=== PATIENT | female | born 1965 | race American Indian/Alaskan Native ===

== ENCOUNTER 2016-08-26 08:49 | Emergency (ER) | payer BC ==
[2016-08-26 10:07] LABS: Basophils % (Auto) 0.5 % (0.0-1.8); Eosinophils % (Auto) 1.8 % (0.0-4.3); Hematocrit 34.8 % (30.3-42.9); Hemoglobin 10.8 gm/dl (10.1-14.3); Mean Corpuscular HGB Conc 31 % (30-34); Platelet Count 236 K/mm3 (140-440); Red Blood Count 5.14 M/mm3 (3.65-5.03); Red Cell Distribution Width 15.9 % (13.2-15.2); White Blood Count 5.5 K/mm3 (4.5-11.0)
[2016-08-26 10:09] LABS: Mean Corpuscular Hemoglobin 21 pg (28-32); Mean Corpuscular Volume 68 fl (79-97)
[2016-08-26 10:12] LABS: Anion Gap 20 mmol/L; BUN/Creatinine Ratio 16.66; Blood Urea Nitrogen 15 mg/dL (7-17); Calcium 10.4 mg/dL (8.4-10.2); Carbon Dioxide 26 mmol/L (22-30); Chloride 101.9 mmol/L (98-107); Glucose 101 mg/dL (65-100); Sodium 144 mmol/L (137-145)
[2016-08-26] MEDS ORDERED: CATAPRES PO ONE (10:50)
--- NOTE | 2016-08-26 10:55 | Emergency Department Report ---
ED Syncope HPI - General Chief Complaint: Syncope Stated Complaint: SYNCOPE Time Seen by Provider: 08/26/16 10:30 Source: patient Exam Limitations: no limitations - History of Present Illness Initial Comments: 51-year-old female presents to the emergency department via EMS for evaluation of syncope. She states that she resigned from her job yesterday. As part of this resignation, she states she was going to work through the end of the week. However after arriving at work today, she states her loss prevention supervisor pulled her into the office and told her that they were releasing her at that time. An argument ensued. Patient states that she left the office and while talking to another coworker began feeling lightheaded. Patient states that she then woke up on the floor. Patient states a similar episode happened one other time after an argument with the loss prevention supervisor. At this time, the patient states that she feels perfectly fine. Patient states that she did take her blood pressure medication this morning. There are no other complaints. Timing/Prior Episodes: single episode today Precipitating Factors: Positive: lightheadedness Context: emotional stress Loss of Consciousness: brief (seconds) Current Symptoms: back to normal - Related Data Allergies/Adverse Reactions: Allergies shrimp Allergy (Verified 05/09/16 10:45) Shortness of Breath Home Medications: Ambulatory Orders Amlodipine Besylate [Norvasc] 2.5 mg PO DAILY #30 tab 05/12/16 Aspirin [Aspirin BABY CHEW TAB] 81 mg PO QDAY #30 tab.chew 05/12/16 Lisinopril [Zestril TAB] 40 mg PO QDAY #30 tablet 05/12/16 Simvastatin [Zocor TAB] 20 mg PO QHS #30 tablet 05/12/16 ED Review of Systems ROS: Stated complaint: SYNCOPE Other details as noted in HPI Comment: All other systems reviewed and negative Cardiovascular: syncope ED Past Medical Hx - Past Medical History Previous Medical History?: Yes Hx Hypertension: Yes Hx Congestive Heart Failure: No Hx Diabetes: No Hx Asthma: No Hx COPD: No - Surgical History Past Surgical History?: Yes Additional Surgical History: x 2 - Family History Family history: no significant - Social History Smoking Status: Never Smoker Substance Use Type: None - Medications Home Medications: Home Medications Medication Instructions Recorded Confirmed Last Taken Type Amlodipine Besylate [Norvasc] 2.5 mg PO DAILY #30 tab 05/12/16 08/26/16 Unknown Rx Aspirin [Aspirin BABY CHEW TAB] 81 mg PO QDAY #30 tab.chew 05/12/16 08/26/16 Unknown Rx Lisinopril [Zestril TAB] 40 mg PO QDAY #30 tablet 05/12/16 08/26/16 Unknown Rx Simvastatin [Zocor TAB] 20 mg PO QHS #30 tablet 05/12/16 08/26/16 Unknown Rx ED Physical Exam - General Limitations: No Limitations General appearance: alert, in no apparent distress - Head Head exam: Present: atraumatic, normocephalic - Eye Eye exam: Present: normal appearance, PERRL, EOMI - ENT ENT exam: Present: normal exam, normal orophraynx, mucous membranes moist - Neck Neck exam: Present: normal inspection, full ROM. Absent: tenderness - Respiratory Respiratory exam: Present: normal lung sounds bilaterally. Absent: respiratory distress - Cardiovascular Cardiovascular Exam: Present: regular rate, normal rhythm, normal heart sounds - GI/Abdominal GI/Abdominal exam: Present: soft, normal bowel sounds. Absent: distended, tenderness - Extremities Exam Extremities exam: Present: normal inspection, full ROM. Absent: tenderness - Back Exam Back exam: Present: normal inspection, full ROM. Absent: tenderness - Neurological Exam Neurological exam: Present: alert, oriented X3. Absent: motor sensory deficit - Skin Skin exam: Present: warm, dry, intact ED Course Vital Signs 08/26/16 08/26/16 08/26/16 09:06 09:29 09:30 Temperature 98.1 F Pulse Rate 94 H 86 82 Respiratory 16 8 L 15 Rate Blood Pressure 220/118 190/110 Blood Pressure [Left] O2 Sat by Pulse 99 99 Oximetry 08/26/16 08/26/16 09:39 09:42 Temperature 98.6 F Pulse Rate 86 Respiratory 15 16 Rate Blood Pressure Blood Pressure 190/110 [Left] O2 Sat by Pulse 99 99 Oximetry ED Medical Decision Making - Lab Data Result diagrams: 08/26/16 09:40 08/26/16 09:40 - EKG Data -: EKG Interpreted by Me EKG shows normal: sinus rhythm, axis, intervals, QRS complexes Rate: normal - EKG Data When compared to previous EKG there are: previous EKG unavailable Interpretation: nonspecific ST-T wave veronique - Medical Decision Making Laboratory results reviewed and discussed with the patient. Patient remains asymptomatic at this time. Patient will be discharged home after being given oral clonidine for her blood pressure. - Differential Diagnosis syncope, anxiety reaction Critical care attestation.: If time is entered above; I have spent that time in minutes in the direct care of this critically ill patient, excluding procedure time. ED Disposition Clinical Impression: Syncope and collapse Disposition: DISCHARGED TO HOME OR SELFCARE Is pt being admited?: No Condition: Stable Instructions: Syncope (ED) Referrals: PRIMARY CARE, [Primary Care Provider] - 3-5 Days Time of Disposition: 10:55
[2016-08-26 11:19] VITALS: BP 170/111
== END 2016-08-26 11:22 | disposition home or self-care (01) ==
LOC: ED 08:49
DX: R55 Syncope and collapse (principal); I10 Essential (primary) hypertension; Z91.013 Allergy to seafood; Z79.82 Long term (current) use of aspirin
CPT/HCPCS: 36415; 80048; 84484; 85025; 93005; 93010